=== PATIENT | male | born 1970 | race Caucasian/White ===

== ENCOUNTER 2024-09-18 13:38 | Emergency (ER) | payer BC ==
[~2024-09-18] VITALS: Ht 175.3 cm; Wt 97.4 kg
[2024-09-18 13:40] VITALS: TEMP 90.4
[2024-09-18 15:15] VITALS: BP 130/79; PULSE 97; RESP 16; O2SAT 97
== END 2024-09-18 15:18 | disposition home or self-care (01) ==
LOC: ER 13:39
DX: S96.912A Strain of unspecified muscle and tendon at ankle and foot level, left foot, initial encounter (principal); X58.XXXA Exposure to other specified factors, initial encounter; Y93.89 Activity, other specified; Y92.89 Other specified places as the place of occurrence of the external cause; Y99.8 Other external cause status
CPT/HCPCS: 73610; 93971; 99284